=== PATIENT | female | born 1970 | race Caucasian/White ===

== ENCOUNTER 2018-12-27 14:50 | Observation (INO) ==
[2018-12-27 16:14] LABS: Eosinophils # 0.1 10*3/uL (0.0-0.87); Eosinophils % 1.5 % (0.00-10.9); Hemoglobin 9.3 GM/DL (12.0-16.0)
[2018-12-27] MEDS ORDERED: ASPIRIN 325 MG TABLET PO STA (16:22)
[2018-12-27] MEDS ORDERED: NITROGLYCERIN SL 0.4 MG TABLET SL PRN (16:22)
[2018-12-27 16:26] LABS: INR 0.9; PT Patient Result 10.2 SECS (9.6-12.2)
[2018-12-27 16:37] LABS: Alanine Aminotransferase 25 U/L (13-56); Albumin 3.3 G/DL (3.4-5.0); Alkaline Phosphatase 48 U/L (45-117); Aspartate Amino Transferase 19 U/L (0-37); Bilirubin,Total < 0.39 MG/DL (0.2-1.0); Blood Urea Nitrogen 20 MG/DL (7-18); Calcium 8.7 MG/DL (8.5-10.1); Glucose 86 MG/DL (74-106); Hematocrit 33.6 VOL% (35.7-47.0); Immature Granulocytes % 0.2 %; Immature Granulocytes Absolute 0.01 #; Lymphocytes # 1.7 10*3/uL (1.4-4.0); Lymphocytes % 42.7 % (21.3-54.2); Mean Corpuscular HGB Conc 27.7 GM/DL (32-36); Mean Corpuscular Volume 72.9 FL (87-102); Mean Platelet Volume 9.8 FL (9.6-12.0); Monocytes % 6.7 % (1.7-12.7); Neutrophils % 47.9 % (38.7-73.9); Osmolality,Calculated 282.3 MOS/KG (273-304); Platelet Count 449 T/CUMM (130-400); Red Blood Count 4.61 MC/CUMM (3.8-5.5); Red Cell Distribution Width 17.2 % (9.3-17.3); Thyroid Stimulating Hormone 0.595 uIU/ml (0.358-3.74)
[2018-12-27] MEDS ORDERED: POTASSIUM CHLORIDE 20 MEQ TABLET PO PRN (17:58)
[2018-12-27] MEDS ORDERED: ZALEPLON 5 MG CAPSULE PO PRN (17:58)
[2018-12-27] MEDS ORDERED: ACETAMINOPHEN 325 MG TABLET PO PRN (17:58)
[2018-12-27] MEDS ORDERED: ONDANSETRON 4 MG/2 ML VIAL IV PRN (17:58)
[2018-12-27 19:10] LABS: Elliptocytes Few; Hypochromasia 1+; Platelet Estimate Increased
[2018-12-27] MEDS ORDERED: ALBUTEROL 2.5 MG/3 ML NEB RESP TX PRN (20:15)
[2018-12-27] MEDS: MORPHINE 4 MG/1 ML VIAL IV PRN ×3 (20:50→21:26)
[2018-12-27 20:56] LABS: Risk Ratio 1.95; VLDL CHOLESTEROL 18.6 MG/DL
[2018-12-27] MEDS ORDERED: MEMANTINE 10 MG TABLET PO SCH (21:00)
[2018-12-27] MEDS ORDERED: ENOXAPARIN 40 MG/0.4 ML SYRINGE SUBCUT SCH (21:00)
[2018-12-27] MEDS: FERROUS GLUCONATE 324 MG TABLET PO SCH (21:12)
[2018-12-27] MEDS: METHOCARBAMOL 750 MG TABLET PO SCH (23:04)
[2018-12-28] MEDS ORDERED: HYDROXYCHLOROQUINE 200 MG TABLET PO SCH (09:00)
[2018-12-28] MEDS ORDERED: Fluticasone Furoate-Vilanterol [Breo Ellipta] 1 inh INH SCH (09:00)
[2018-12-28] MEDS ORDERED: ESTRADIOL 1 MG TABLET PO SCH (09:00)
[2018-12-28] MEDS ORDERED: hydroCHLOROthiazide 12.5 MG CAPSULE PO SCH (09:00)
[2018-12-28] MEDS ORDERED: PANTOPRAZOLE 40 MG TABLET PO SCH (09:00)
[2018-12-28] MEDS ORDERED: DULoxetine 30 MG CAPSULE PO SCH (09:00)
[2018-12-28] MEDS ORDERED: ASPIRIN EC 325 MG TABLET PO SCH (09:00)
[2018-12-28] MEDS ORDERED: TOPIRAMATE 200 MG TABLET PO SCH (09:00)
[2018-12-28] MEDS ORDERED: CYANOCOBALAMIN 1000 MCG/1 ML VIAL SUBCUT SCH (09:00)
[2018-12-28] MEDS ORDERED: REGADENOSON 0.4 MG/5 ML SYRINGE IV ONE (10:36)
[2018-12-28] MEDS: METHOCARBAMOL 750 MG TABLET PO SCH ×2 (10:58→14:12)
[2018-12-28] MEDS: FERROUS GLUCONATE 324 MG TABLET PO SCH (10:59)
[2018-12-28] MEDS ORDERED: ISOSORBIDE MONONITRATE 30 MG TABLET PO SCH (12:04)
[2018-12-28] MEDS ORDERED: amLODIPine 2.5 MG TABLET PO SCH (12:05)
[2018-12-28 12:06] VITALS: BP 100/65
== END 2018-12-28 15:45 | disposition home or self-care (01) ==
LOC: N.EDINP 14:50 → N.ED 14:50 → SUATTDRO 17:58 → N.TELEN 18:24
PROVIDERS: ADMIT Internal Medicine; ATTEND Family Medicine